=== PATIENT | male | born 1990 | race Hispanic/Latino ===

== ENCOUNTER 2017-10-19 12:48 | Emergency (ER) | payer SELFPAY ==
[2017-10-19] MEDS ORDERED: Lidocaine 1% 20 ML MDV ONE (13:09)
== END 2017-10-19 13:35 | disposition home or self-care (01) ==
LOC: SCSER 12:48
DX: L02.215 Cutaneous abscess of perineum (principal)
CPT/HCPCS: 46050; J2001